=== PATIENT | male | born 1955 | race Caucasian/White ===

== ENCOUNTER 2016-09-23 15:21 | Emergency (ER) | payer OTHER ==
[~2016-09-23] VITALS: Ht 185.4 cm; Wt 113.4 kg
[~2016-09-23 15:21] MED LIST: AMLODIPINE BESYL5 M1 PO; AMOXIL500 MG PO; AUGMENTIN 875 M1 TAB PO; AZITHROMYCIN250 MG PO; CIPRODEX 0.3%-7.5 ML TOP; CLARITIN10 MG PO; CLEOCIN HCL300 M1 PO; CLOPIDOGREL75 MG PO; CRESTOR40 M1 PO; CRESTOR40 MG PO; DAILY MULTIPLE1 EACH PO; FLOMAX0.4 M1 PO; FLONASE120 SPRAY/ NAS; FOLIC ACID 1 MG PO; LOPRESSOR50 M1 PO; NEURONTIN600 M1 PO; PANTOPRAZOLE SO40 MG PO; PERCOCET 325 MG1 TA2 PO; PERCOCET 5-3251 EACH PO; POLYTRIM EYE DR10 ML OPH; SANCTURA PO; SERTRALINE HYDR25 MG PO; THIAMINE HCL50 MG PO; VENTOLIN1 PUF INH
--- NOTE | 2016-09-23 15:58 | ED PSYCHIATRIC COMPLAINT ---
See Addendum History of Present Illness General Chief Complaint: ETOH/Drug Related Complaint Stated Complaint: ETOH Source: patient, EMS Exam Limitations: intoxication Allergies Coded Allergies: bee pollen (PT DOESNT REMEMBER WHEN HE WAS YOUNGER 09/05/15) diltiazem (UNKNOWN 09/05/15) venom-honey bee (BEE VENOM (HONEY BEE)) (PT DOESNT REMEMBER WHEN HE WAS YOUNG ) Reconcile Medications Albuterol Sulfate (Ventolin) 1 UNIT PUF 2 PUF INH Q4P PRN shortness of breath, wheezing Amlodipine Besylate 5 MG TABLET 1 TAB PO DAILY HEART (Reported) CLOPIDOGREL BISULFATE (Clopidogrel) 75 MG TABLET 1 TAB PO DAILY BLOOD THINNER (Reported) Gabapentin (Neurontin) 600 MG TABLET 1 TAB PO TID PAIN (Reported) Metoprolol Tartrate (Lopressor) 50 MG TABLET 1 TAB PO BID HEART (Reported) Multivitamin (Daily Multiple Vitamin) 1 EACH TABLET 1 TAB PO DAILY SUPPLEMENT (Reported) Pantoprazole Sodium 40 MG TABLET.DR 1 TAB PO DAILY GERD (Reported) Polytrim (Polytrim Eye Drops) 10,000 UNIT-1 MG/ML DROPS 1 GTT OPH Q6 conjunctivitis bilateral eyes Rosuvastatin Calcium (Crestor) 40 MG TAB 40 MG PO DAILY CHOLESTEROL (Reported ) SERTRALINE HCL (Sertraline Hydrochloride) 25 MG TAB 100 MG PO DAILY MENTAL HEALTH (Reported) Tamsulosin HCl (Flomax) 0.4 MG CAP.ER.24H 1 CAP PO DAILY PROSTATE (Reported) THIAMINE HCL (Thiamine HCl) 50 MG TAB 100 MG PO DAILY supplement (Reported) Trospium Chloride (Sanctura XR 60MG) 60 MG CAP 20 MG PO BID Bladder (Reported ) Triage Note: BIBA AFTER POLICE WERE CALLED TO A RESIDENCE WHERE PT WAS ACUTELY INTOXICATED. PT AWAKE, GARBLED SPEECH, UNCOOPERATIVE. NO RESP DISTRESS. PT SMELLS OF ALCOHOL. Triage Nurses Notes Reviewed? yes Onset: Abrupt Duration: unknown duration Timing: recent history HPI: 60-year-old male brought in by ambulance for intoxication. Patient reports that his /girlfriend called the ambulance on him. He denies wanting admission for detox. No SI HI. Denies any other associated symptoms. History is very limited secondary to patient's intoxication. He is currently eating food. (ADEBAYO DOWELL) Vital Signs & Intake/Output Vital Signs & Intake/Output Vital Signs Date Time Temp Pulse Resp B/P B/P Pulse O2 O2 Flow FiO2 Mean Ox Delivery Rate 09/24 1140 98.2 84 16 128/76 94 Room Air 09/24 1134 Room Air 09/24 1036 98.2 74 18 132/76 05 1006 98.2 74 18 132/76 98 Room Air 09/24 0750 97.0 76 18 128/74 98 Room Air 09/24 0531 96.0 74 18 130/77 94 Room Air 09/24 0342 97.6 101 20 148/90 98 Room Air ED Intake and Output 09/24 0000 09/23 1200 Intake Total Output Total Balance Patient 250 lb Weight Weight Estimated Measurement Method Past History Travel History Traveled to [place] past 21 day No Medical History Any Pertinent Medical History? see below for history Neurological: TBI EENT: NONE Cardiovascular: CAD, hypertension, myocardial infarction Respiratory: bronchitis Gastrointestinal: pancreatitis Hepatic: NONE Musculoskeletal: chronic back pain Other Medical Hx: ALCOHOL DEPENDENCY Tetanus Vaccine: 10/01/14 Surgical History Surgical History: unobtainable, N CARDIAC STENTS Psychosocial History Who do you live with [facility] What is your primary language Portuguese Tobacco Use: Refused to answer ETOH Use: alcoholic Illicit Drug Use: UTD Family History Family History, If Any: FATHER (heart disease). MOTHER (gangrene). BROTHER (psych issues). Hx Contributory? No (ADEBAYO DOWELL) Review of Systems Review of Systems Constitutional: Reports: no symptoms. EENTM: Reports: no symptoms. Respiratory: Reports: no symptoms. Cardiovascular: Reports: no symptoms. GI: Reports: no symptoms. Genitourinary: Reports: no symptoms. Musculoskeletal: Reports: no symptoms. Skin: Reports: no symptoms. Neurological/Psychological: Reports: see HPI. Hematologic/Endocrine: Reports: no symptoms. Immunologic/Allergic: Reports: no symptoms. All Other Systems: Reviewed and Negative (ADEBAYO DOWELL) Physical Exam Physical Exam General Appearance: well developed/nourished, mild distress Head: atraumatic Eyes: Bilateral: normal appearance. Ears, Nose, Throat: normal ENT inspection, hearing grossly normal Neck: normal inspection Respiratory: no respiratory distress Extremities: normal range of motion Neurological/Psychiatric: awake, alert Appearance/Memory/Insight: disheveled Behavoir/Eye Contact/Speech: cooperative Thoughts/Hallucinations: no apparent hallucination Skin: intact, normal color, warm/dry (ADEBAYO DOWELL) SAD PERSONS Done? unobtained due to conditi (CANDICE FOUNTAIN) Progress Differential Diagnosis: dementia, drug intoxication, drug overdose, drug withdrawal, electrolyte abnormality, encephalitis, hypoglycemia, hypothyroidism, IC hem/mass/tumor, meningitis Hand-Off Endorsed To: MAREN LA,ISAC Carrillo Pending: other (sober/repeat alcohol) (ADEBAYO DOWELL) Plan of Care: Orders Procedure Date/time Status URINE DRUGS OF ABUSE 09/23 152 Complete ETHANOL 09/23 152 Complete COMPREHENSIVE METABOLIC PANEL 09/23 152 Complete CBC WITHOUT DIFFERENTIAL 09/23 152 Complete Laboratory Tests 09/23/16 1600: Anion Gap 17 H, Estimated GFR > 60, BUN/Creatinine Ratio 12.2, Glucose 99, Calcium 8.6, Total Bilirubin 0.5, AST 46, ALT 70, Alkaline Phosphatase 91, Total Protein 7.9, Albumin 4.4, Globulin 3.5, Albumin/Globulin Ratio 1.3, CBC w Diff NO MAN DIFF REQ, RBC 4.82, MCV 95.6 H, MCH 32.2 H, RDW 14.3, MPV 6.9 L, Gran % 61.5, Lymphocytes % 26.7, Monocytes % 9.5 H, Eosinophils % 2.0, Basophils % 0.3, Absolute Granulocytes 5.0, Absolute Lymphocytes 2.2, Absolute Monocytes 0.8 H, Absolute Eosinophils 0.2, Absolute Basophils 0, PUBS MCHC 33.7, Serum Alcohol 367.0 09/23/16 1532: Urine Opiates Screen < 100.00, Methadone Screen < 40, Barbiturate Screen < 60, Ur Phencyclidine Scrn < 6.00, Amphetamines Screen < 100, U Benzodiazepines Scrn < 85, Urine Cocaine Screen < 50, Urine Cannabis Screen < 5.00 2100 CASE d/w and signed out to me pending pt sobriety 100 case d/w and signed out to dr white at 1am pending pt sobriety (CANDICE FOUNTAIN) Hand-Off Endorsed To: CANDICE FOUNTAIN Endorsed Time: 2057 Pending: other (CANDICE FOUNTAIN) Hand-Off Endorsed To: ANGELIQUE ANTHONY DO Endorsed Time: 0700 Pending: other (MAREN LA,ISAC Carrillo) Departure Departure Disposition: STILL A PATIENT Condition: Stable Clinical Impression Primary Impression: ETOH abuse Referrals: JANES HART APRN (PCP/Family) Departure Forms: Customer Survey General Discharge Information (ADEBAYO DOWELL) Departure Additional Instructions: STOP DRINKING ALCOHOL (CANDICE FOUNTAIN) PA/RADIO ARTIST Co-Sign Statement Statement: ED Attending supervision documentation- [] I saw and evaluated the patient. I have also reviewed all the pertinent lab results and diagnostic results. I agree with the findings and the plan of care as documented in the PA's/RADIO ARTIST's documentation. [x] I have reviewed the ED Record and agree with the PA's/RADIO ARTIST's documentation. [] Additions or exceptions (if any) to the PAs/RADIO ARTIST's note and plan are summarized below: [] (MAREN LA,ISAC Carrillo) Departure Comments 09/24/16 7 AM Patient signed out to me by Dr. White. (ANGELIUQE ANTHONY DO)
[2016-09-23 16:17] LABS: ABSOLUTE BASOPHIL COUNT 0 /CUMM (0.0-0.2); ABSOLUTE EOSINOPHIL COUNT 0.2 /CUMM (0.0-0.7); ABSOLUTE LYMPH COUNT 2.2 /CUMM (1.2-3.4); ABSOLUTE MONOCYTE COUNT 0.8 /CUMM (0.10-0.60); BASOPHIL % 0.3 % (0.0-2.0); GRANULOCYTE % 61.5 % (42.2-75.2); HEMATOCRIT 46.1 % (42-52); MEAN CORPUSCULAR HGB 32.2 PG (27.0-31.0); MEAN CORPUSCULAR HGB CONC 33.7 G/DL (33.0-37.0); MEAN CORPUSCULAR VOLUME 95.6 FL (80.0-94.0); MEAN PLATELET VOLUME 6.9 FL (7.4-10.4); PLATELET COUNT 251 /CUMM (130-400); RBC DISTRIBUTION WIDTH 14.3 % (11.5-14.5); RED BLOOD CELL CT 4.82 /CUMM (4.70-6.10); WHITE BLOOD CELL COUNT 8.2 /CUMM (4.8-10.8)
[2016-09-24 11:40] VITALS: BP 128/76
== END 2016-09-24 11:56 ==
LOC: ERH 15:21
PROVIDERS: Physician Assistant Medical
DX: F10.10 Alcohol abuse, uncomplicated (principal)
CPT/HCPCS: 80307; G0480